=== PATIENT | male | born 1995 | race Two or more races ===

== ENCOUNTER 2020-10-31 07:01 | Outpatient (REF) | payer OTHER, SELFPAY | END 2020-10-31 07:02 | disposition home or self-care (01) | LOC: HO.LAB 07:01 | PROVIDERS: Visit Provider Internal Medicine | DX: Z20.828 Contact with and (suspected) exposure to other viral communicable diseases (principal) | CPT/HCPCS: C9803; U0003 ==

== ENCOUNTER 2021-04-08 12:42 | Emergency (ER) | payer OTHER, SELFPAY ==
[2021-04-08 13:00] VITALS: BP 157/80; PULSE 76; RESP 16; TEMP 35.9; O2SAT 99; BMI 29.9
--- NOTE | 2021-04-08 14:19 | ED.GENADULT ---
HPI - General Adult General Chief complaint: General Medical Stated complaint: STOMACH PROBLEM Time Seen by Provider: 04/08/21 14:00 Source: patient Mode of arrival: ambulatory Limitations: no limitations History of Present Illness HPI narrative: Patient presents to ED for work note. Patient yesterday had headache and diarrhea that resolved on its own. Patient presently is asymptomatic. Patient denies any chest pain, abdominal pain, nausea, vomiting, fever, chills, diarrhea, flank pain, hematuria, dysuria, or neck stiffness. Patient presently states he is asymptomatic Related Data Allergies Allergy/AdvReac Type Severity Reaction Status Date / Time No Known Allergies Allergy Unverified 07/26/20 19:51 [No Known Allergies*] Review of Systems Constitutional: Constitutional: Reports as per HPI, Reports no additional constitutional complaints and Reports headache(s) (resolved) Eyes: Eyes: Reports as per HPI and Reports no additional eye complaints ENT: Reports system reviewed and no additional complaints, except as documented, Reports as per HPI and Reports headache(s) (resolved) Cardiovascular: Cardiovascular: Reports as per HPI and Reports no additional cardiovascular complaints Respiratory: Respiratory: Reports as per HPI and Reports no additional respiratory complaints Gastrointestinal: Gastrointestinal: Reports as per HPI, Reports no additional gastrointestinal complaints, Denies abdominal pain, Denies belching, Denies melena, Denies early satiety, Denies dyspepsia, Denies heartburn, Denies nausea, Reports vomiting (resolved) and Denies hematemesis Genitourinary: Genitourinary: Reports no additional male genitourinary complaints and Reports as per HPI Musculoskeletal: Musculoskeletal: Reports no additional musculoskeletal complaints and Reports as per HPI Neurologic: Reports system reviewed and no additional complaints, except as documented, Reports as per HPI and Reports headache(s) (resolved) Psychiatric: Psychiatric: Reports no additional psychiatric complaints and Reports as per HPI [facility] Social History Social History Advance Directives: No Advance Directives Information Provided: No Physical Exam Vital Signs: Vital Signs: Last Vital Signs Temp 96.7 F L 04/08/21 13:00 Pulse 76 04/08/21 13:00 Resp 16 04/08/21 13:00 BP 157/80 H 04/08/21 13:00 Pulse Ox 99 04/08/21 13:00 Body Mass Index 29.9 Const: General: cooperative, healthy appearing, comfortable, no acute distress, well developed, alert and awake Orientation/consciousness: patient oriented x3 HENMT: Head: Yes normal to inspection, Yes No palpable skull fracture present, Yes normocephalic and Yes atraumatic Eyes: General: appearance normal, both eyes and all related structures Neck: Neck: Yes normal visual inspection, Yes full ROM, Yes no lymphadenopathy, Yes no meningeal signs, Yes trachea midline, Yes supple and No tender Chest: Chest palpation & inspection: normal inspection of the chest and normal palpation of entire chest wall Resp: Effort & Inspection: normal respiratory effort and able to speak in complete sentences Auscultation: clear to auscultation bilaterally Cardio: Jugular venous distension: no JVD Heart sounds: S1 normal heart sound present and S2 normal heart sound present GI: Inspection: Yes normal to inspection and No abdominal wall ecchymosis Palpation (GI): Soft to palpation, not firm, nontender, no guarding and not rigid : General: No CVA tenderness and Yes no CVA tenderness Back/Spine/Pelvis: Back: no CVA tenderness, No CVA tenderness and No back tenderness Skin: General skin exam: no rashes or lesions noted and elasticity normal Neuro: General: patient oriented x3, no meningeal signs and CN's II-XI intact bilaterally Cranial nerves: Yes CN's II-XII intact bilaterally Extrem: General: Yes normal to inspection and Yes full ROM Psych: Appearance: grossly normal, well kempt and not disheveled Course Course Course Narrative: History physical exam indicate viral gastroenteritis. Patient vital signs stable no need for labs. Only COVID swab. Reevaluation(s) Reevaluation #1: COVID swab negative. Patient educated on brat diet. Patient discharged Medical Decision Making Lab Data Labs: Lab Results 04/08/21 Range/Units 14:20 COVID-19 (ROB) Negative (Negative) COVID-19 Clin Com See Note Discharge Plan Discharge Clinical Impression: Gastroenteritis Patient Disposition: Home, Self-Care Instructions: Gastroenteritis (ED), Viral Syndrome (ED) Stand Alone Forms: Work/School Release Interventions: ED Discharge Assessment Last Done: 04/08/21 15:21 Discharge Date/Time: 04/08/21 15:22
[2021-04-08 14:42] LABS: COVID-19 Test Negative (Negative)
== END 2021-04-08 15:22 | disposition home or self-care (01) ==
PROVIDERS: Physician Assistant; Emergency Provider Emergency Medicine Emergency Medical Services
DX: Z02.79 Encounter for issue of other medical certificate (principal); K52.9 Noninfective gastroenteritis and colitis, unspecified; B34.9 Viral infection, unspecified; Z20.822 Contact with and (suspected) exposure to COVID-19
CPT/HCPCS: 36415; 87635; 99283

== ENCOUNTER 2022-01-06 13:51 | Emergency (ER) | payer OTHER, SELFPAY ==
[2022-01-06 14:38] VITALS: BP 162/96; PULSE 89; RESP 18; TEMP 37.1; O2SAT 99; BMI 29.9
== END 2022-01-06 17:10 | disposition left against medical advice (07) ==
PROVIDERS: Emergency Provider Emergency Medicine
DX: Z48.02 Encounter for removal of sutures (principal)
CPT/HCPCS: 99281; 99282

== ENCOUNTER 2022-04-12 06:18 | Emergency (ER) | payer OTHER, SELFPAY ==
--- NOTE | ~2022-04-12 | US_ITS ---
EXAMINATION: US VENOUS ULTRASOUND WITH DOPPLER LOWER EXTREMITY, RIGHT CLINICAL INFORMATION: Elevated d-dimer COMPARISON: None TECHNIQUE: Ultrasound of the deep veins is performed from the hip to the calf with compression sonography and color and pulse Doppler assessment. Spectral analysis with color-flow imaging is performed. FINDINGS: There is normal venous compression and respiratory variation and augmented flow. The visualized common femoral vein, superficial femoral vein, profunda femoral vein, popliteal vein, and the trifurcation region shows no evidence of deep venous thrombosis. No popliteal artery aneurysm is seen. There is a popliteal fossa cyst which extends down into the mid calf. This measures approximately 11.4 x 1.3 x 8.4 cm in size. US/US venous duplex LE RT IMPRESSION: No acute DVT demonstrated in the right lower extremity. Popliteal fossa cyst extending down into the mid calf.
[2022-04-12 06:24] VITALS: BP 152/84; PULSE 80; RESP 16; TEMP 36.1; O2SAT 96; BMI 29.8
--- NOTE | 2022-04-12 07:00 | ED_ITS ---
HPI - Extremity Injury (Lower) General Chief Complaint: Extremity Injury, Lower Stated Complaint: leg inj Time Seen by Provider: 04/12/22 07:00 Source: patient and floor worker well service Mode of arrival: ambulatory History of Present Illness HPI Narrative: 26-year-old male with presentation of progressive swelling, pain or 3 weeks in the right calf and otherwise denies any underlying hematologic disorders, recent travel, traumatic injury but does state that he may have injured it during basketball. Otherwise, he denies any fever, chills is able to both plantar and dorsiflex his foot Related Data Allergies Allergy/AdvReac Type Severity Reaction Status Date / Time No Known Allergies Allergy Verified 04/12/22 06:26 [No Known Allergies*] Review of Systems Review of Systems: Pertinent positives and negatives as stated in HPI 10 point review of systems is otherwise negative. [facility] Past Medical History Source: nursing notes reviewed Social History Social History Advance Directives: No Advance Directives Information Provided: Yes Physical Exam Vital Signs: Vital Signs: Last Vital Signs Temp 97 F 04/12/22 06:24 Pulse 80 04/12/22 06:24 Resp 16 04/12/22 06:24 BP 152/84 H 04/12/22 06:24 Pulse Ox 96 04/12/22 06:24 BMI result Body Mass Index 29.8 VITAL SIGNS: Reviewed. GENERAL: Well developed, well nourished, in no acute distress. HEAD: Normocephalic/atraumatic EYES: PERRLA, EOMI EARS: Ext canals without abnormality OROPHARYNX: no oral lesions noted, posterior pharynx clear LUNGS: Normal breath sounds. No adventitious sounds or accessory muscle use. SpO2<>96 CARDIOVASCULAR: Regular rate and rhythm without noted murmurs ABDOMEN: Soft, non-tender, non-distended with bowel sounds. MUSCULOSKELETAL: No tenderness, deformities, or effusions noted on gross inspection. EXTREMITIES: No cyanosis, clubbing or edema; RIGHT LOWER EXTREMITY: Swelling and tightness noted to the right calf, palpable pulses, sensation is intact, capillary refill less than 3 seconds, plantar/dorsiflexion of the foot is without difficulty there is no footdrop SKIN: Inspection of the skin reveals no rashes NEUROLOGIC: Alert and oriented x 4. Strength and sensation to light touch were grossly intact x 4. Course Course Course Narrative: 26-year-old male with history and clinical presentation concerning for possible DVT without evidence to suggest PE, seems inconsistent with a cellulitis and patient has no history of sickle cell to his knowledge and since this is a traumatic lower clinical suspicion for torn muscle. Review of all investigations although initially showed an elevated D-dimer is consistent after venous duplex which is negative for DVT of a ruptured Lopez cyst. Patient was provided with combination analgesics, an Charlie wrap was applied, all results were discussed with the patient he was discharged home in stable condition. MDM - Extremity Injury (Lower) Lab Data Result diagrams: 04/12/22 07:04/12/22 07:22 Labs: Lab Results 04/12/22 04/12/22 04/12/22 Range/Units 07: 07: 07:22 WBC 4.8 (4.8-10.8) X10*3/uL RBC 5.24 (4.60-5.80) X10*6/uL Hgb 14.7 (14.0-18.0) g/dl Hct 45.2 (42.0-52.0) % MCV 86.3 (80.0-98.0) fL MCH 28.1 (27.0-33.0) pg MCHC 32.5 (31.0-36.0) g/dl RDW 13.3 (11.0-16.0) % Plt Count 189 (160-400) X10*3/uL MPV 12.6 H (9.4-12.4) fL Immature Gran % (Auto) 0.2 (0.0-0.4) % Neut % (Auto) 39.8 L (45-73) % Lymph % (Auto) 47.4 H (20-40) % [place] % (Auto) 9.9 (2-11) % Eos % (Auto) 2.1 (0-4) % Baso % (Auto) 0.6 (0-2) % Lymph # (Auto) 2.3 (1.2-4.9) X10*3/uL [place] # (Auto) 0.5 (0.1-1.2) X10*3/uL Eos # (Auto) 0.1 (0.0-0.4) X10*3/uL Baso # (Auto) 0.0 (0.0-0.2) X10*3/uL Abs Immat Gran (auto) 0.01 (0.00-0.03) X10*3/uL Absolute Neuts (auto) 1.9 L (2.0-8.3) x10*3/uL Absolute Nucleated RBC 0.000 (0.0-0.012) X10*3/uL Nucleated RBC % (auto) 0.0 (0.0-0.2) /100WBC PT 12.2 (9.9-13.0) SEC INR 1.1 (0.9-1.1) D-Dimer High Sensitivty 573 NG/ML Sodium 140 (135-145) mmol/L Potassium 4.0 (3.3-5.1) mmol/L Chloride 107 (96-108) mmol/L Carbon Dioxide 25 (22-29) mmol/L Anion Gap 12 (12-20) BUN 16 (9-16) mg/dL Creatinine 1.11 (0.5-1.4) mg/dL Estim Creat Clear Calc 119.8 Estimated GFR > 60 Random Glucose 100 (60-115) mg/dL Calcium 9.8 (8.4-10.2) mg/dL Total Bilirubin 0.5 (0.0-1.0) mg/dL AST 20 (5-37) U/L ALT 35 (0-40) U/L Alkaline Phosphatase 86 (39-117) U/L Total Creatine Kinase 209 H (38-174) U/L Total Protein 7.7 (6.5-8.0) g/dL Albumin 4.2 (3.5-5.0) g/dL Discharge Plan Discharge Clinical Impression: Ruptured Bakers cyst Patient Disposition: Home, Self-Care Instructions: Bakers Cyst (ED) Additional Instructions: 1. Le green diagnosticado un quiste popl?natan probablemente roto. [place] se trata con Tylenol e ibuprofeno de venta cookie, as? victoria con la aplicaci?n de loli envoltura Charlie. 2. Seguimiento con stahl proveedor de atenci?n primaria para loli evaluaci?n adicional. Regrese a la shraddha de emergencias si los s?ntomas empeoran. Print Language: Congolese
[2022-04-12 07:27] LABS: MANUAL DIFF FLAG NO
[2022-04-12 07:31] LABS: Basophils Percent Auto 0.6 % (0-2); Eosinophils Absolute Auto 0.1 X10*3/uL (0.0-0.4); Eosinophils Percent Auto 2.1 % (0-4); Hematocrit 45.2 % (42.0-52.0); Hemoglobin 14.7 g/dl (14.0-18.0); Imm Gran Abs Auto 0.01 X10*3/uL (0.00-0.03); Imm Gran Pct Auto 0.2 % (0.0-0.4); Lymphocytes Absolute Auto 2.3 X10*3/uL (1.2-4.9); Lymphocytes Percent Auto 47.4 % (20-40); Mean Corpuscular HGB Conc 32.5 g/dl (31.0-36.0); Mean Corpuscular Hemoglobin 28.1 pg (27.0-33.0); Mean Corpuscular Volume 86.3 fL (80.0-98.0); Mean Platelet Volume 12.6 fL (9.4-12.4); Monocytes Absolute Auto 0.5 X10*3/uL (0.1-1.2); Monocytes Percent Auto 9.9 % (2-11); Neutrophils Absolute Auto 1.9 x10*3/uL (2.0-8.3); Neutrophils Percent Auto 39.8 % (45-73); Platelet Count 189 X10*3/uL (160-400); Red Blood Count 5.24 X10*6/uL (4.60-5.80); Red Cell Distribution Width 13.3 % (11.0-16.0); White Blood Count 4.8 X10*3/uL (4.8-10.8)
[2022-04-12 07:38] LABS: INTERNATIONAL NORM RATIO 1.1 (0.9-1.1); Prothrombin Time 12.2 SEC (9.9-13.0)
[2022-04-12 07:45] LABS: D Dimer High Sensitivity 573 NG/ML
[2022-04-12 07:49] LABS: Alanine Aminotransferase 35 U/L (0-40); Albumin Level 4.2 g/dL (3.5-5.0); Alkaline Phosphatase 86 U/L (39-117); Anion Gap 12 (12-20); Aspartate Amino Transferase 20 U/L (5-37); Bilirubin Total 0.5 mg/dL (0.0-1.0); Blood Urea Nitrogen 16 mg/dL (9-16); Calcium 9.8 mg/dL (8.4-10.2); Carbon Dioxide 25 mmol/L (22-29); Chloride 107 mmol/L (96-108); Creatinine Clr Calc Pharmacy 119.8; Estimated Glomerular Filt Rate > 60; Glucose Random 100 mg/dL (60-115); Sodium 140 mmol/L (135-145); Total Protein 7.7 g/dL (6.5-8.0)
[2022-04-12] MEDS: Acetaminophen 325 MG TABLET 975 MG PO (10:38)
[2022-04-12] MEDS: Ketorolac Tromethamine 15 MG/ML VIAL IM (10:38)
[2022-04-12 10:41] VITALS: BP 157/108; PULSE 58; RESP 18; O2SAT 100
== END 2022-04-12 10:55 | disposition home or self-care (01) ==
PROVIDERS: Emergency Provider Student in an Organized Health Care Education/Training Program
DX: M66.0 Rupture of popliteal cyst (principal); R60.0 Localized edema; Z79.899 Other long term (current) drug therapy
CPT/HCPCS: 36415; 80053; 82550; 85025; 85379; 85610; 93971; 96372; 99283; 99284; J1885

== ENCOUNTER 2023-04-13 08:37 | Emergency (ER) | payer MEDICAID, SELFPAY ==
--- NOTE | ~2023-04-13 | XR_ITS ---
EXAMINATION: XR ANKLE, LEFT CLINICAL INFORMATION: Left ankle injury COMPARISON: None available. TECHNIQUE: AP, lateral, and mortise views of the left ankle. FINDINGS: Prominent lateral soft tissue swelling. No fracture. The ankle mortise is preserved. XR/XR ankle LT 2V IMPRESSION: Lateral soft tissue swelling. No fracture.
[2023-04-13 08:45] VITALS: BP 155/101; PULSE 97; RESP 18; TEMP 36.2; O2SAT 97; BMI 33.2
--- NOTE | 2023-04-13 10:02 | ED.LOWEXIN ---
HPI - Extremity Injury (Lower) General Chief Complaint: Extremity Injury, Lower Stated Complaint: l ankle inj Time Seen by Provider: 04/13/23 09:05 Source: patient and certified court interpreter Mode of arrival: ambulatory Limitations: language barrier History of Present Illness HPI Narrative: 27-year-old male previously healthy here with left ankle pain after an inversion injury occurred which occurred last evening while playing basketball. Patient denies any previous injury to the ankle. Patient reports pain is worsened with weight-bearing. Patient denies any pain over the foot or posterior ankle. He denies any associated weakness, numbness or tingling of extremity. Related Data Allergies Allergy/AdvReac Type Severity Reaction Status Date / Time No Known Allergies Allergy Verified 04/13/23 12:21 [No Known Allergies*] Review of Systems Review of Systems: Yes all other systems are reviewed and are negative Constitutional: Constitutional: Reports no additional constitutional complaints, Denies body ache(s), Denies chills, Denies fever(s), Denies headache(s) and Denies weakness Eyes: Eyes: Reports no additional eye complaints and Denies change in vision ENT: Reports system reviewed and no additional complaints, except as documented, Denies dizziness, Denies headache(s), Denies nasal congestion, Denies nasal discharge and Denies neck pain Cardiovascular: Cardiovascular: Reports no additional cardiovascular complaints, Denies chest pain, Denies leg edema and Denies dyspnea Respiratory: Respiratory: Reports no additional respiratory complaints, Denies cough and Denies dyspnea Gastrointestinal: Gastrointestinal: Reports no additional gastrointestinal complaints, Denies abdominal pain, Denies diarrhea, Denies nausea and Denies vomiting Genitourinary: Genitourinary: Denies urinary incontinence Musculoskeletal: Musculoskeletal: Reports no additional musculoskeletal complaints, Denies back pain, Reports arthralgias, Reports joint swelling, Denies neck pain, Denies numbness and Denies tingling Integumentary/Breasts: Skin/Breast: Reports system reviewed and no additional complaints, except as docu and Denies rash Neurologic: Reports system reviewed and no additional complaints, except as documented, Denies Abnormal speech present, Denies dizziness, Denies headache(s), Denies numbness, Denies tingling and Denies weakness [facility] Past Medical History Attestation statement: The following information was validated with the patient. Source: old records reviewed and nursing notes reviewed Social History Social History (System 04/13/23 @ 12:21 by Geeta Bellamy) Alcohol intake: never Smoked in Last 30 Days: No Use of substances other than those prescribed or required for medical reasons: No Advance Directives: No Advance Directives Information Provided: Yes Physical Exam Vital Signs: Vital Signs: Last Vital Signs Temp 97.1 F 04/13/23 08:45 Pulse 97 04/13/23 08:45 Resp 18 04/13/23 08:45 BP 155/101 H 04/13/23 08:45 Pulse Ox 97 04/13/23 08:45 O2 Del Method Room Air 04/13/23 08:45 BMI result Body Mass Index 33.2 Const: General: cooperative, healthy appearing, comfortable and no acute distress Orientation/consciousness: patient oriented x3 Limitations: no limitations HEENT: Head: Yes normal to inspection Ears: hearing grossly normal bilaterally General nose exam: Normal external nose present Face and sinus: Yes normal facial exam Mouth: Normal oral and palatal mucosa present Throat: Yes posterior oropharynx normal Eyes: General: appearance normal, both eyes and all related structures Pupils: Equal, round and reactive pupils present Neck: Neck: Yes normal visual inspection Chest: Chest palpation & inspection: normal inspection of the chest Resp: Effort & Inspection: normal respiratory effort Auscultation: clear to auscultation bilaterally Cardio: Rate: regular rate Rhythm: regular rhythm Peripheral pulses: Peripheral pulses 2+ throughout GI: Inspection: Yes normal to inspection Palpation (GI): Soft to palpation and nontender Auscultation: normal bowel sounds Back/Spine/Pelvis: Thoracic/Lumbar Spine: thoracic and lumbar spine normal to inspection Skin: General skin exam: no rashes or lesions noted Neuro: General: patient oriented x3, no focal motor deficits and normal sensation to monofilament Cranial nerves: Yes Equal, round and reactive pupils present Cognition (Neuro): normal cognition Speech: No Abnormal speech present Gait exam (Neuro): Normal gait present Motor exam (neuro): 5/5 motor strength present throughout Extrem: Other: There is tenderness on palpation over the left lateral ankle with mild swelling. There is no pain over the foot on palpation. No pain over the medial or posterior ankle. There is full range of motion of the foot and ankle. There is no ligamental laxity. There are normal DP and PT pulses. Sensation is intact distally. Negative Xiong test. General: Yes normal to inspection Course Course Course Narrative: x-ray shows no acute fracture. Likely sprain. Patient placed in Charlie wrap and given crutches for home. Reviewed rice home. Reviewed supportive care. Reviewed worrisome signs and symptoms of when to return to the emergency room. Comfortable plan for discharge home. Medical Decision Making Medical Decision Making MDM Narrative: 27-year-old male here with left ankle pain after an inversion injury which occurred yesterday. On exam patient was swelling and tenderness over the lateral ankle CMS is intact will check x-rays Differential Diagnosis Differential Diagnoses: The differential diagnosis associated with the presentation includes likely sprain low concern for fracture, Achilles tendon rupture, Bai fracture, vascular injury Independent Interpretation I performed an independent interpretation of an: Plain X-Ray Interpretation: I independently reviewed the x-ray and agree with radiologist for Radiology Impression Discussion of test interpretation with radiology: I have reviewed the radiologist's reading. Radiologist Impression: [place] [id number] XRay Report Signed Patient: Nirav Garrison MR#: [id number] : 1995 Acct:[id number] Age/Sex: 27 / M ADM Date: 04/13/23 Loc: .ED Attending Dr: Ordering Physician: Moses Klein MD Date of Service: 04/13/23 Procedure(s): XR ankle LT 2V Accession Number(s): [id number] cc: Moses Klein MD~ EXAMINATION: XR ANKLE, LEFT CLINICAL INFORMATION: Left ankle injury? COMPARISON: None available.? TECHNIQUE: AP, lateral, and mortise views of the left ankle. FINDINGS: Prominent lateral soft tissue swelling. No fracture. The ankle mortise is preserved.? XR/XR ankle LT 2V IMPRESSION: Lateral soft tissue swelling. No fracture. ? Procedures Procedure Narrative Procedure Narrative: Charlie wrap, crutches Discharge Plan Discharge Clinical Impression: Ankle sprain and strain Patient Disposition: Home, Self-Care Instructions: Ankle Sprain (DC), Crutch Instructions (ED) Additional Instructions: Use Charlie wrap and crutches for the next several days until able to bear weight without experiencing pain. Take Motrin or Tylenol for pain as needed. Apply ice to the ankle for pain. Elevate the ankle. Gentle stretching. Follow up with your primary care doctor for any persistent symptoms. Use vendaje Charlie y muletas michael los pr?ximos d?as hasta que pueda soportar peso sin sentir dolor. [place] Motrin o Tylenol para el dolor seg?n sea necesario. Aplicar hielo en el tobillo para el dolor. [place] el tobillo. Estiramiento suave. [place] un seguimiento con stahl m?dico de atenci?n primaria por cualquier s?ntoma persistente. Referrals: Physician,None [Primary Care Provider] - 1 week (PCP for persistent symptoms ) Stand Alone Forms: Work/School Release Interventions: ED Discharge Assessment Last Done: 04/13/23 10:16 Discharge Date/Time: 04/13/23 10:16 Print Language: Arabic
== END 2023-04-13 10:16 | disposition home or self-care (01) ==
PROVIDERS: Emergency Provider Emergency Medicine
DX: S93.402A Sprain of unspecified ligament of left ankle, initial encounter (principal); S96.912A Strain of unspecified muscle and tendon at ankle and foot level, left foot, initial encounter; X50.1XXA Overexertion from prolonged static or awkward postures, initial encounter; Y93.67 Activity, basketball; Y92.310 Basketball court as the place of occurrence of the external cause; Y99.9 Unspecified external cause status
CPT/HCPCS: 73600; 99283

== ENCOUNTER 2023-08-04 09:37 | Emergency (ER) | payer OTHER, MEDICAID, SELFPAY ==
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
[2023-08-04 09:38] VITALS: BP 152/80; PULSE 88; RESP 20; TEMP 36.7; O2SAT 100; BMI 31.7
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
== END 2023-08-04 13:33 | disposition home or self-care (01) ==
PROVIDERS: Emergency Provider Emergency Medicine
DX: S29.012A Strain of muscle and tendon of back wall of thorax, initial encounter (principal); M54.50 Low back pain, unspecified; X58.XXXA Exposure to other specified factors, initial encounter; Y93.9 Activity, unspecified; Y92.9 Unspecified place or not applicable; Y99.9 Unspecified external cause status
CPT/HCPCS: 72072; 99282; 99283

== ENCOUNTER 2024-04-19 07:37 | Emergency (ER) | payer MEDICAID, SELFPAY ==
[2024-04-19 07:46] VITALS: BP 166/96; PULSE 110; RESP 18; TEMP 37.8; O2SAT 97; BMI 33.5
[2024-04-19 08:12] LABS: IDNOW Serial# 08D9AD1C; Strep A Nucleic Acid Negative (Negative)
[2024-04-19 08:32] LABS: COVID-19 Test Negative (Negative); IDNOW Serial# 152EDE1D
[2024-04-19 08:34] LABS: IDNOW Serial# 9DB6401D; Influenza A Negative (Negative); Influenza B2 Negative (Negative)
--- NOTE | 2024-04-19 13:15 | ED_ITS ---
HPI - General Adult General Chief complaint: Upper Respiratory Symptoms Stated complaint: body aches, cant keep food down Time Seen by Provider: 04/19/24 12:38 Source: patient Mode of arrival: ambulatory Limitations: no limitations History of Present Illness ED Provider: Pato Rosen PA-C HPI narrative: 28-year-old male with no past medical history presents to ED for body aches, chills, headache, neck pain and nausea. Patient denies any chest pain, shortness of breath, abdominal pain, coughing up blood, photophobia, fever, dizziness, diarrhea, rash, or any urinary symptoms. Related Data Previous Rx's ?Medication ?Instructions ?Recorded cyclobenzaprine 5 mg tablet 5 mg PO TID PRN muscle spasm #10 08/04/23 tabs lidocaine 5 % topical patch 1 patch topical DAILY #15 ea 08/04/23 naproxen 500 mg tablet 500 mg PO BID PRN pain 7 days #14 04/19/24 tabs Allergies Allergy/AdvReac Type Severity Reaction Status Date / Time No Known Allergies Allergy Verified 04/19/24 07:48 [No Known Allergies*] Review of Systems Review of Systems: bodyaches,headache,neck pain, nausea, chills, Yes all other systems are reviewed and are negative [facility] Social History Social History (System 04/13/23 @ 12:21 by Geeta Bellamy) Alcohol intake: never Advance Directives: No Physical Exam ED Vital Signs: Vital Signs - 24 hr 04/19/24 07:46 04/19/24 14:13 Temperature 100.0 F 100.0 F Pulse Rate 110 H 110 H Respiratory Rate 18 18 Blood Pressure 166/96 H 166/96 H Pulse Oximetry 97 97 Oxygen Delivery Method Room Air Room Air BMI result Body Mass Index 33.5 Const General: cooperative, healthy appearing, comfortable, no acute distress, well developed, alert, awake and Physically active Orientation/consciousness: oriented to person, oriented to place, oriented to time and patient oriented x3 HENMT Head: Yes normal to inspection, Yes No palpable skull fracture present, Yes normocephalic and Yes atraumatic Ears: hearing grossly normal bilaterally, external ears normal, TM's normal bilaterally, TM normal on the right, TM normal on the left, EAC's normal, mastoids normal and no periauricular adenopathy Throat: Yes posterior oropharynx normal, Yes tonsils normal and Yes uvula midline Eyes General: appearance normal, both eyes and all related structures Neck Neck: Yes normal visual inspection, Yes full ROM, Yes no lymphadenopathy, Yes no meningeal signs, Yes trachea midline, Yes supple, No anterior neck swelling and No tender Chest Chest palpation & inspection: normal inspection of the chest and normal palpation of entire chest wall Resp Effort & Inspection: normal respiratory effort and able to speak in complete sentences Auscultation: clear to auscultation bilaterally Cardio Jugular venous distension: no JVD Heart sounds: S1 normal heart sound present and S2 normal heart sound present GI Inspection: Yes normal to inspection Palpation (GI): Soft to palpation, not firm, nontender, no guarding and not rigid General: No CVA tenderness and Yes no CVA tenderness Back/Spine/Pelvis Back: no CVA tenderness, No CVA tenderness and No back tenderness Skin General skin exam: no rashes or lesions noted, elasticity normal and turgor normal Neuro General: oriented to person, oriented to place, oriented to time, patient oriented x3, gait normal, tone normal, moves all extremities, Normal light touch and pain sensation, no meningeal signs, no focal motor deficits, CN's II-XI intact bilaterally and normal sensation to monofilament Extrem General: Yes normal to inspection, Yes full ROM and Yes capillary refill normal Psych Appearance: grossly normal, well kempt and not disheveled Medical Decision Making Medical Decision Making [facility] Narrative: 28-year-old male no past medical history presents to ED for viral-like syndromes. Patient's influenza COVID and strep is negative. Physical exam does not indicate meningitis, pneumonia, or any surgical medical emergent etiology of the abdomen. Ear oral exam negative. Patient explained worrisome signs and informed to return to the ED immediately if he has them. Not suspecting encephalitis Differential Diagnosis Differential Diagnoses: The differential diagnosis associated with the presentation includes ( COVID, influenza, strep viral syndrome) Admission/Observation Consideration of admission/observation: Escalation of care including admission/observation considered Lab Data [facility] Lab Attestation statement: I reviewed the patient's lab results. Labs: Lab Results 04/19/24 Range/Units 07:55 COVID-19 (ROB) Negative (Negative) COVID-19 Clin Com See Note Influenza Type A (RAIZA) Negative (Negative) Influenza Type B (RAIZA) Negative (Negative) Influenza A & B Note See Note S. pyogenes GrpA RAIZA Negative (Negative) Independent Historian Clinical information obtained from an independent historian. History obtained from or confirmed by: Other ( patient) External Record Review External record reviewed: Other ( prior visits) Prescription Management I considered prescription management with: Pain Medication Discharge Plan Discharge Clinical Impression: Viral infection Patient Disposition: Home, Self-Care Instructions: Viral Syndrome (ED) Additional Instructions: your COVID influenza and strep swab came back negative. Return to the ED immediately for any neck stiffness, light bothering your eyes, rash, nausea, vomiting, chest pain, shortness of breath, abdominal pain, ear pain, sore throat, diarrhea, dysuria, hematuria, abdominal pain, or any other concerning symptoms. Prescriptions: New naproxen 500 mg tablet 500 mg PO BID PRN (Reason: pain) 7 Days Qty: 14 0RF No Action cyclobenzaprine 5 mg tablet 5 mg PO TID PRN (Reason: muscle spasm) Qty: 10 0RF lidocaine 5 % adhesive patch,medicated 1 patch topical DAILY Qty: 15 0RF Rx Instructions: leave on most painful area for up to 12 hrs Stand Alone Forms: Work/School Release Interventions: ED Discharge Assessment Last Done: 04/19/24 14:13 Discharge Date/Time: 04/19/24 14:13 Print Language: Azeri
[2024-04-19 14:13] VITALS: BP 166/96; PULSE 110; RESP 18; TEMP 37.8; O2SAT 97
== END 2024-04-19 14:13 | disposition home or self-care (01) ==
PROVIDERS: Emergency Provider Emergency Medicine
DX: B34.9 Viral infection, unspecified (principal); M79.10 Myalgia, unspecified site; R51.9 Headache, unspecified; M54.2 Cervicalgia; R11.2 Nausea with vomiting, unspecified; Z11.52 Encounter for screening for COVID-19
CPT/HCPCS: 87502; 87635; 87651; 99282; 99283

== ENCOUNTER 2025-01-19 10:33 | Emergency (ER) | payer MEDICAID, SELFPAY ==
--- NOTE | ~2025-01-19 | XR_ITS ---
EXAMINATION: XR LUMBOSACRAL SPINE CLINICAL INFORMATION: back pain COMPARISON: None available. TECHNIQUE: Three views of the lumbosacral spine. FINDINGS: The vertebral bodies and posterior elements are normal. The disc spaces are preserved and the vertebral alignment is normal. The paraspinal soft tissues are normal. XR/XR lumbar spine 2-3V IMPRESSION: Normal lumbar radiographs. Electronically signed by: Karel Shaffer MD 01/19/2025 01:56 PM EDT
--- NOTE | ~2025-01-19 | XR_ITS ---
EXAMINATION: XR THORACIC SPINE CLINICAL INFORMATION: back pain COMPARISON: 08/04/2023. TECHNIQUE: 3 views of the thoracic spine were obtained. FINDINGS: There is no fracture or bone destruction seen and the vertebral alignment is normal. There is no disc space narrowing. There is no abnormality of the paraspinal soft tissues. XR/XR thoracic spine 3V IMPRESSION: Normal thoracic spine radiographs. Electronically signed by: Karel Shaffer MD 01/19/2025 01:57 PM EDT
[2025-01-19 10:42] VITALS: BP 174/121; PULSE 89; RESP 18; TEMP 36; O2SAT 98; BMI 33.3
[2025-01-19] MEDS: predniSONE 20 MG TABLET 40 MG PO (12:47)
[2025-01-19] MEDS: Ketorolac Tromethamine 30 MG/ML VIAL IM (12:47)
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
[2025-01-19 13:02] VITALS: BP 147/106; PULSE 72; RESP 14; TEMP 36.8; O2SAT 99
[2025-01-19 15:21] VITALS: BP 169/96; PULSE 78; RESP 20; TEMP 37.1; O2SAT 98
[2025-01-19 15:30] VITALS: BP 169/96; PULSE 78; RESP 20; TEMP 37.1; O2SAT 98
== END 2025-01-19 15:30 | disposition home or self-care (01) ==
PROVIDERS: Emergency Provider Emergency Medicine
DX: M54.9 Dorsalgia, unspecified (principal)
CPT/HCPCS: 72072; 72100; 96372; 99284; J1885

== ENCOUNTER → 2025-01-19 12:54 | Outpatient (BNV) | payer MEDICAID, SELFPAY | PROVIDERS: Emergency Provider Emergency Medicine; Visit Provider Radiology Diagnostic Radiology | DX: M54.50 Low back pain, unspecified (principal); M54.6 Pain in thoracic spine | CPT/HCPCS: 72072; 72100 ==

== ENCOUNTER 2025-06-28 14:32 | Emergency (ER) | payer MEDICAID, SELFPAY ==
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
--- NOTE | 2025-06-28 14:45 | ECG_ITS ---
Test Reason : HIGH SUGAR Blood Pressure : */* mmHG Vent. Rate : 95 BPM Atrial Rate : 95 BPM P-R Int : 154 ms QRS Dur : 74 ms QT Int : 352 ms P-R-T Axes : 38 22 -11 degrees QTcB Int : 442 ms Normal sinus rhythm Normal ECG No previous ECGs available Referred By: Marianna Christine Electronically Signed By: NARENDRA ELIZALDE MD
[2025-06-28 14:50] LABS: Glucose, Whole Blood 420 mg/dL (60-115)
[2025-06-28] MEDS: Lactated Ringers 1,000 ML 2000 ML IV (14:57)
[2025-06-28 14:59] VITALS: BP 145/85; PULSE 105; RESP 17; TEMP 36.8; O2SAT 100; O2SAT 96; BMI 36.8
--- OUTSIDE RECORDS SUMMARY | 2025-06-28 15:00 | XMS_ITS | Encounter Summary ---
Author Organization [employer] Address [address] [place] [address] Care Team Providers Care Housekeeper Child Care Name Role Phone Unavailable Primary Care Provider Unavailabl e Reason for Visit * Reason Comments Dizziness Encounter Details Date Type Department Care Team ([facility] st Contact Info) Description 06/28/2025 3:00 PM EDT Office Visit [facility] [address] [place] [address] Marychuy Wynne MD [address] [place] [address] Newly diagnosed diabetes (CMS/HCC) (Primary Dx); Dizzy; Excessive thirst; Elevated blood pressure reading Social History Tobacco Use Types Packs/Day Years Used Date Smoking Tobacco: Never Assessed Sex and Gender Information Value Date Recorded Sex Assigned at Male 09/08/2022 10:40 AM EDT Legal Sex Male 10:40 AM EDT Gender Identity Male 09/08/2022 10:40 AM EDT Sexual Orientation Straight 09/08/2022 10 :40 AM EDT documented as of this encounter Last Filed Vital Signs Vital Sign Reading Time Taken Comments Blood Pressure 158/100 06/28/2025 1:44 PM EDT Pulse 99 06/28/2025 1:44 PM EDT Temperature 36.6 C (97.9 F) 06/28/2025 1:44 PM EDT Respiratory Rate 18 06/28/2025 1:44 PM EDT Oxygen Saturation 96% 06/28/2025 1:44 PM EDT Inhaled Oxygen Concentration - - Weight - - Height - - Body Mass Index - - documented in this encounter Progress Notes * Marychuy Paige MD - 06/28/2025 3:00 PM EDT SUBJECTIVE: Nirav Ware is a 29 y.o. year old male who presents for acute visit . Concerns for today's visit: Occupation:unemployed Lives with:partner and daughter - EtOH occasionally weekends only no more than 3 drinks - smoking cigarettes denies - recreational drug use denies Diet:regular Exercise: plays softball on weekends Surgeries/Hospitalizations:none PMHx:none FMHx:father HTN Acute Concerns: 1 week of excessive thirst , polyuria, enuresis and fatigue and dizziness Social History Social History Narrative Not on file Problem List[1] Family History[2] Review of Systems Constitutional: Positive for fatigue. Negative for activity change, appetite change, chills, diaphoresis, fever and unexpected weight change. HENT: Negative. Respiratory: Negative. Cardiovascular: Negative. Gastrointestinal: Negative for abdominal distention, abdominal pain, anal bleeding, blood in stool,constipation, diarrhea, nausea, rectal pain and vomiting. Heartburn Neurological: Positive for dizziness and light-headedness. Negative for tremors, seizures, syncope,facial asymmetry, speech difficulty, weakness, numbness and headaches. OBJECTIVE: Vitals: 06/28/25 1344 BP: (!) 158/100 BP Location: Left arm Patient Position: Sitting BP Cuff Size: Large adult Pulse: 99 Resp: 18 Temp: 97.9 ??F (36.6 ??C) TempSrc: Oral SpO2: 96% Physical Exam Constitutional: Appearance: Normal appearance. Cardiovascular: Rate and Rhythm: Normal rate and regular rhythm. Pulmonary: Effort: Pulmonary effort is normal. Breath sounds: Normal breath sounds. Abdominal: General: Abdomen is flat. Palpations: Abdomen is soft. Musculoskeletal: Right lower leg: No edema. Left lower leg: No edema. Neurological: Mental Status: He is alert. Follow Up: No follow-ups on file. Medications Ordered Prior to Encounter[3] Problem List Items Addressed This Visit Newly diagnosed diabetes ([facility]) - Primary Glucose today [facility], A1c 12.3 urine + ketones Patient presented to [facility] called Elevated blood pressure reading I advised low Na diet, weight reduction, I will follow up after hospitalization Other Visit Diagnoses Dizzy Relevant Orders POCT Glucose (Completed) POCT HGB A1C (Completed) POCT Urinalysis (Completed) Excessive thirst Relevant Orders POCT Glucose (Completed) POCT HGB A1C (Completed) POCT Urinalysis (Completed) [1] Patient Active Problem List Diagnosis Newly diagnosed diabetes (CMS/[facility]) Elevated blood pressure reading [2] No family history on file. [3] No current outpatient medications on file prior to visit. No current facility-administered medications on file prior to visit. documented in this encounter Miscellaneous Notes * Assessment & Plan Note - Marychuy Paige MD - 06/28/2025 2:06 PM EDT Associated Problem(s): Elevated blood pressure reading I advised low Na diet, weight reduction, I will follow up after hospitalization * Assessment & Plan Note - Marychuy Paige MD - 06/28/2025 2:04 PM EDT Associated Problem(s): Newly diagnosed diabetes ([facility]) Glucose today [facility], A1c 12.3 urine + ketones Patient presented to [facility] called documented in this encounter Plan of Treatment Upcoming Encounters Date Type Department Care Team (Late st Contact Info) Description 07/18/2025 10:15 AM EDT Office Visit [facility] [address] [place] [address] Marychuy Wynne MD [address] [place] [address] documented as of this encounter Procedures Procedure Name Priority Date/Time Associated Diagnosis Comments POCT GLYCATED HEMOGLOBIN, TOTAL Routine 06/28/2025 1:41 PM EDT Dizzy Excessive thirst POCT GLUCOSE Routine 06/28/2025 1:41 PM EDT Dizzy Excessive thirst POCT URINALYSIS DIPSTICK Routine 06/28/2025 1:37 PM EDT Dizzy Excessive thirst documented in this encounter Results * (ABNORMAL) POCT HGB A1C (06/28/2025 1:41 PM EDT) Hemoglobin A1C 12.3(A) 4.0 - 5.7 % Blood 06/28/2025 1:41 PM EDT Marychuy Paige MD POINT OF CARE TEST EN TER/EDIT ORDERABLES Final Result * (ABNORMAL) POCT Glucose (06/28/2025 1:41 PM EDT) Glucose Blood, POC 500(A) 60 - 200 mg/dL Comment:[facility] Blood Capillary blood specimen / Unknown 06/28/2025 1:41 PM EDT Marychuy Paige MD POINT OF CARE TEST EN TER/EDIT ORDERABLES Final Result * (ABNORMAL) POCT Urinalysis (06/28/2025 1:37 PM EDT) Color, UA Colorless Clarity, UA Clear Glucose, UA 4+ >500 Comment:over 1000 Bilirubin, UA Negative Ketones, UA Positive Comment:15 Spec Grav, UA 1.005 Blood, UA Positive(A) Negative, None Detected Comment:trace pH, UA 5.5 Protein, UA Negative Urobilinogen, UA 0.2 Leukocytes, UA Negative Negative, Rare, Trace Nitrite, UA Negative Negative, None Detected Urine 06/28/2025 1:37 PM EDT Result Chelita Paige MD POINT OF CARE TEST EN TER/EDIT ORDERABLES Final Result documented in this encounter Visit Diagnoses Diagnosis Newly diagnosed diabetes (CMS/[facility])- Primary Type II or unspecified type diabetes mellitus without mention of complication, not stated as uncontrolled Dizzy Dizziness and giddiness Excessive thirst Polydipsia Elevated blood pressure reading Elevated blood pressure reading without diagnosis of hypertension documented in this encounter
[2025-06-28 15:06] VITALS: BP 145/85; PULSE 105; RESP 17; TEMP 36.8; O2SAT 96
[2025-06-28 15:17] LABS: Venous Blood Gas Refer to POC result
[2025-06-28 15:18] LABS: VBG HCO3 29 mmol/L (22-26); VBG O2 % Saturation 66.0 %
[2025-06-28 15:18] LABS: MANUAL DIFF FLAG SCAN; SCAN SMEAR FLAG 1
[2025-06-28 15:20] LABS: Hematocrit 45.9 % (42.0-52.0); Hemoglobin 15.6 g/dl (14.0-18.0); Imm Gran Abs Auto 0.01 X10*3/uL (0.00-0.03); Imm Gran Pct Auto 0.2 % (0.0-0.4); Lymphocytes Absolute Auto 1.5 X10*3/uL (1.2-4.9); Mean Corpuscular HGB Conc 34.0 g/dl (31.0-36.0); Mean Corpuscular Hemoglobin 28.1 pg (27.0-33.0); Mean Corpuscular Volume 82.6 fL (80.0-98.0); NRBC Abs Auto 0.000 X10*3/uL (0.0-0.012); NRBC Pct Auto 0.0 /100WBC (0.0-0.2); PLT ABN DIST 1; Platelet Count 169 X10*3/uL (160-400); Red Blood Count 5.56 X10*6/uL (4.60-5.80); White Blood Count 5.3 X10*3/uL (4.8-10.8)
[2025-06-28 15:23] LABS: INTERNATIONAL NORM RATIO 1.0 (0.9-1.1); Prothrombin Time 11.1 SEC (10.9-12.4)
[2025-06-28 15:45] LABS: Alanine Aminotransferase 73 U/L (0-40); Albumin Level 4.6 g/dL (3.5-5.0); Alkaline Phosphatase 125 U/L (39-117); Anion Gap 16 (12-20); Aspartate Amino Transferase 39 U/L (5-37); Blood Urea Nitrogen 10 mg/dL (9-16); Calcium 9.4 mg/dL (8.4-10.2); Carbon Dioxide 26 mmol/L (22-29); Chloride 103 mmol/L (96-108); Creatinine Clr Calc Pharmacy 128.0; Estimated Glomerular Filt Rate > 60; Magnesium 2.1 mg/dL (1.6-2.6); Potassium 4.4 mmol/L (3.3-5.1); Sodium 141 mmol/L (135-145); Total Protein 8.0 g/dL (6.5-8.0)
[2025-06-28 15:55] LABS: Resp Syncy Virus RNA Qual PCR NEGATIVE (Negative); SARS COV2 PCR INHOUSE NEGATIVE (Negative)
[2025-06-28 15:56] LABS: Troponin-I High Sensitivity < 2.7 ng/L (<3.5-35.0)
--- OUTSIDE RECORDS SUMMARY | 2025-06-28 16:22 | XMS_ITS | Encounter Summary ---
Author Organization [facility] Address [address] [place] [phone] Phone Care Team Providers Care Sandwich And Drink Cart Operator Name Role Phone Pcp, Unknown Primary Care Provider Unavailabl e Encounter Details Date Type Department Care Team (Late st Contact Info) Description 12/26/2021 Procedure Pass [facility], Ct Scan - [address] [address] Social History Tobacco Use Types Packs/Day Years Used Date Smoking Tobacco: Never Assessed Sex and Gender Information Value Date Recorded Sex Assigned at Male 12/26/2021 5:45 AM EST Legal Sex Male 5:33 AM EST Gender Identity Not on file Sexual Orientation Not on file documented as of this encounter Functional Status * Calculated C-SSRS Risk Score (Lifetime/Recent) Answer Date of Assessment Author No Risk Indicated 12/26/2021 5:50 AM EST Maribel oRbert RN * [place] Suicide Severity Rating Scale (Screener/Recent Self-Report) Question Answer Date of Assessment Author 1. Wish to be (Past 1 Month) No 12/26/2021 5:50 AM EST Radha Yoon RN 2. Non-Specific Active Suicidal Thoughts (Past 1 Month) No 12/26/2021 5:50 AM Radha Christian RN 6. Suicidal Behavior (Lifetime) No 12/26/2021 5:50 AM EST Radha Yoon RN documented as of this encounter Plan of Treatment Not on file documented as of this encounter Visit Diagnoses Not on filedocumented in this encounter Care Teams Sandwich And Drink Cart Operator Relationship Specialty Start Date End Date Pcp, Unknown PCP - General 12/26/21 documented as of this encounter Additional Source Comments The information contained in this document represents components of the legal health record. It is not the complete legal health record.[facility]
[2025-06-28 16:45] VITALS: BP 153/98; PULSE 89; RESP 16; TEMP 36.6; O2SAT 95
[2025-06-28 17:43] LABS: Alanine Aminotransferase 68 U/L (0-40); Albumin Level 4.4 g/dL (3.5-5.0); Alkaline Phosphatase 109 U/L (39-117); Anion Gap 14 (12-20); Aspartate Amino Transferase 34 U/L (5-37); Blood Urea Nitrogen 8 mg/dL (9-16); Calcium 9.2 mg/dL (8.4-10.2); Carbon Dioxide 25 mmol/L (22-29); Chloride 106 mmol/L (96-108); Creatinine Clr Calc Pharmacy 144.1; Estimated Glomerular Filt Rate > 60; Potassium 4.2 mmol/L (3.3-5.1); Sodium 141 mmol/L (135-145); Total Protein 7.6 g/dL (6.5-8.0)
[2025-06-28 18:10] VITALS: BP 147/92; PULSE 83; RESP 17; TEMP 36.6; O2SAT 95
== END 2025-06-28 18:11 | disposition home or self-care (01) ==
PROVIDERS: Physician Assistant Medical; Emergency Provider Emergency Medicine; PCP Internal Medicine
DX: R42 Dizziness and giddiness (principal); E11.9 Type 2 diabetes mellitus without complications; Z79.4 Long term (current) use of insulin
CPT/HCPCS: 36415; 80053; 82010; 82803; 82947; 83735; 84484; 85025; 85610; 87637; 93005; 96360; 96361; 99284; 99285; J7120

== ENCOUNTER → 2025-06-28 14:45 | Outpatient (BNV) | payer MEDICAID, SELFPAY | PROVIDERS: Emergency Provider Emergency Medicine; PCP Internal Medicine; Visit Provider Internal Medicine Cardiovascular Disease | DX: R73.9 Hyperglycemia, unspecified (principal) | CPT/HCPCS: 93010 ==

== ENCOUNTER 2025-07-16 15:37 | Emergency (ER) | payer MEDICAID, SELFPAY ==
[2025-07-16 16:10] VITALS: BP 153/87; PULSE 95; RESP 20; TEMP 37.1; O2SAT 97; BMI 32.1
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
[2025-07-16 16:34] LABS: MANUAL DIFF FLAG NO
[2025-07-16 16:39] LABS: Hematocrit 45.3 % (42.0-52.0); Hemoglobin 15.8 g/dl (14.0-18.0); Imm Gran Abs Auto 0.01 X10*3/uL (0.00-0.03); Imm Gran Pct Auto 0.2 % (0.0-0.4); Lymphocytes Absolute Auto 1.7 X10*3/uL (1.2-4.9); Mean Corpuscular HGB Conc 34.9 g/dl (31.0-36.0); Mean Corpuscular Hemoglobin 28.0 pg (27.0-33.0); Mean Corpuscular Volume 80.3 fL (80.0-98.0); NRBC Abs Auto 0.000 X10*3/uL (0.0-0.012); NRBC Pct Auto 0.0 /100WBC (0.0-0.2); Platelet Count 175 X10*3/uL (160-400); Red Blood Count 5.64 X10*6/uL (4.60-5.80); White Blood Count 4.6 X10*3/uL (4.8-10.8)
[2025-07-16 16:51] LABS: Alanine Aminotransferase 59 U/L (0-40); Albumin Level 4.6 g/dL (3.5-5.0); Alkaline Phosphatase 126 U/L (39-117); Anion Gap 17 (12-20); Aspartate Amino Transferase 53 U/L (5-37); Blood Urea Nitrogen 15 mg/dL (9-16); Calcium 8.9 mg/dL (8.4-10.2); Carbon Dioxide 23 mmol/L (22-29); Chloride 102 mmol/L (96-108); Creatinine Clr Calc Pharmacy 138.2; Estimated Glomerular Filt Rate > 60; Potassium 4.0 mmol/L (3.3-5.1); Sodium 138 mmol/L (135-145); Total Protein 7.9 g/dL (6.5-8.0)
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
--- OUTSIDE RECORDS SUMMARY | 2025-07-16 17:31 | XMS_ITS | Encounter Summary ---
Author Organization [facility] Address [address] [place] [address] Phone Care Team Providers Care Program Coordinator For Residence Life Name Role Phone Pcp, Unknown Primary Care Provider Unavailabl e Encounter Details Date Type Department Care Team (Late st Contact Info) Description 12/26/2021 Procedure Pass [facility], Ct Scan - [address] [address] Social History Tobacco Use Types Packs/Day Years [...] Risk Indicated 12/26/2021 5:50 AM EST Maribel Robert RN * [place] Suicide Severity Rating Scale (Screener/Recent Self-Report) Question [...] on filedocumented in this encounter Care Teams Program Coordinator For Residence Life Relationship Specialty Start Date End Date Pcp, Unknown PCP - General 12/26/21 documented as of this encounter Additional Source Comments The information contained in this document represents components of the legal health record. It is not the complete legal health record.[facility]
--- OUTSIDE RECORDS SUMMARY | 2025-07-16 17:31 | XMS_ITS | Clinical Summary ---
Author Organization [employer] Address [address] [place] [address] Care Team Providers Care Salesperson New Cars Name Role Phone Unavailable Primary Care Provider Unavailabl e Allergies No known active allergies Medications metFORMIN (Glucophage) 500 MG tablet Take 500 mg by mouth with breakfast and with evening meal. Active Active Problems Problem Noted Date Diagnosed Date Newly diagnosed diabetes 06/28/2025 Assessment & Plan (06/28/2025 2:04 PM EDT): Glucose today [facility], A1c 12.3 urine + ketones Patient presented to [facility] [place] [place] [facility] called Elevated blood pressure reading 06/28/2025 Assessment & Plan (06/28/2025 2:06 PM EDT): I advised low Na diet, weight reduction, I will follow up after hospitalization Encounters Date Type Department Care Team Description 06/28/2025 3:00 PM EDT Office Visit [facility] [address] [place] [address] Marychuy Wynne MD Newly diagnosed diabetes ([facility]) (Primary Dx); Dizzy; Excessive thirst; Elevated blood pressure reading 06/28/2025 Orders Only GENERIC EXTERNAL DATA DEPARTMENT Provider, Generic External Data 06/28/2025 Travel from Last 3 Months Immunizations Immunization Administration Dates Next Due Moderna Covid-19 Vaccine 12+ 05/09/2022,04/25/20 21,03/28/2021 Tdap 12/26/2021 Social History Tobacco Use Types Packs/Day Years Used Date Smoking Tobacco: Never Assessed Sex and Gender Information Value Date Recorded Sex Assigned at Male 09/08/2022 10:40 AM EDT Legal Sex Male 10:40 AM EDT Gender Identity Male 09/08/2022 10:40 AM EDT Sexual Orientation Straight 09/08/2022 10 :40 AM EDT Last Filed Vital Signs Vital Sign Reading Time Taken Comments Blood Pressure 158/100 06/28/2025 1:44 PM EDT Pulse 99 06/28/2025 1:44 PM EDT Temperature 36.6 C (97.9 F) 06/28/2025 1:44 PM EDT Respiratory Rate 18 06/28/2025 1:44 PM EDT Oxygen Saturation 96% 06/28/2025 1:44 PM EDT Inhaled Oxygen Concentration - - Weight - - Height - - Body Mass Index - - Plan of Treatment Upcoming Encounters Date Type Department Care Team (Late st Contact Info) Description 07/18/2025 10:15 AM EDT Office Visit [facility] [address], [place] [phone] Marychuy Wynne MD [address] [place], [place] [phone] Health Maintenance Due Date Last Done Comments Depression Screening 1995 HIV Screening 1995 Lipid Panel 1995 SDOH Screening 1995 Disability Screening 1995 Diabetes: Foot Exam 2005 Eye Exam 2005 Alcohol/Substance Use Screening 2007 Tobacco Screening 2007 Family Planning (PISQ) 2010 HPV Vaccines (1 - Male 3-dos e series) 2010 Hepatitis C Screening 2013 Diabetes: Urine Protein Screening 2014 Hepatitis B Vaccines (1 of 3 - 19+ 3-dose series) 2014 Pneumococcal Vaccine: Pediatrics (0 to 5 Years) and At-Risk Patients (6 to 49) Years (1 of 2 - PCV) 2014 COVID-19 Vaccine (4 - 2024-2 6 season) 2025 05/09/2022, 04/25/2021, 03/28/2021 Influenza Vaccine (#1) 2025 Diabetes: Hemoglobin A1C 09/28/2025 06/28/2025 DTaP/Tdap/Td Vaccines (2 - T d or Tdap) 12/26/2031 12/26/2021 Zoster Vaccines (1 of 2) 2045 RSV Patients and Patients Aged 60 years or older (1 - 1-dose 75+ series) 2070 HIB Vaccines Aged Out No longer eligi ble based on patient's age to complete this topic Hepatitis A Vaccines Aged Out No long er eligible based on patient's age to complete this topic IPV Vaccines Aged Out No longer eligi ble based on patient's age to complete this topic Meningococcal B Vaccine Aged Out No l onger eligible based on patient's age to complete this topic Meningococcal Vaccine Aged Out No nahid melly eligible based on patient's age to complete this topic RSV under 20 months Aged Out No longe r eligible based on patient's age to complete this topic Rotavirus Vaccines Aged Out No longer eligible based on patient's age to complete this topic Procedures Procedure Name Priority Date/Time Associated Diagnosis Comments COMPREHENSIVE METABOLIC PANEL Routine 06/28/2025 5:15 PM EDT POCT GLYCATED HEMOGLOBIN, TOTAL Routine 06/28/2025 1:41 PM EDT Dizzy Excessive thirst POCT GLUCOSE Routine 06/28/2025 1:41 PM EDT Dizzy Excessive thirst POCT URINALYSIS DIPSTICK Routine 06/28/2025 1:37 PM EDT Dizzy Excessive thirst from Last 3 Months Results * (ABNORMAL) Comprehensive Metabolic Panel (06/28/2025 5:15 PM EDT) Sodium 141 135 - 145 mmol/L [facility] Potassium 4.2 3.3 - 5.1 mmol/L [facility] Chloride 106 96 - 108 mmol/L [facility] Carbon Dioxide 25 22 - 29 mmol/L [facility] Anion Gap 14 12 - 20 [facility] Urea Nitrogen (BUN) 8(L) 9 - 16 mg/dL [facility] Creatinine, Serum 0.88 0.5 - 1.4 mg/dL [facility] Creatinine Clr Calc Pharmacy 144.1 [facility] Comment:eGFR (calculated fro m the MDRD study equation) and eCrCl(calculated from the Cockcroft-Gault equation) are based ondifferent parameters and may not yield comparable results.If eCrCl result is absurd, please check patient'sheight/weight. Estimated Glomerular Filt Rate >60 [facility] Comment:Chronic Kidney Disea se: Estimated GFR < 60 mL/min/1.06l7Emjaag Kidney Disease: Estimated GFR < 15 mL/min/1.73m2 Glucose 307(H) 60 - 115 mg/dL [facility] Calcium 9.2 8.4 - 10.2 mg/dL [facility] Bilirubin, Total 0.6 0.0 - 1.0 mg/dL [facility] Aspartate Amino Transferase 34 5 - 37 U/L [facility] Alanine Aminotransferase 68(H) 0 - 40 U/L [facility] Total Protein 7.6 6.5 - 8.0 g/dL [facility] Albumin Level 4.4 3.5 - 5.0 g/dL [facility] Alkaline Phosphatase 109 39 - 117 U/L [facility] 06/28/2025 5:15 PM EDT 06/28/2025 5:17 PM EDT us Generic External Data Provider LAB BLOOD ORDERAB LES Final Result [facility] [address] [place] [phone] * (ABNORMAL) POCT HGB A1C (06/28/2025 1:41 PM EDT) Hemoglobin A1C 12.3(A) 4.0 - 5.7 % Blood 06/28/2025 1:41 PM EDT us Marychuy Paige MD POINT OF CARE TEST EN TER/EDIT ORDERABLES Final Result * (ABNORMAL) POCT Glucose (06/28/2025 1:41 PM EDT) Glucose Blood, POC 500(A) 60 - 200 mg/dL Comment:[facility] Blood Capillary blood specimen / Unknown [...] None Detected Urine 06/28/2025 1:37 PM EDT Marychuy Paige MD POINT OF CARE TEST EN TER/EDIT ORDERABLES Final Result from Last 3 Months Insurance [facility] C3
--- OUTSIDE RECORDS SUMMARY | 2025-07-16 17:32 | XMS_ITS | Encounter Summary ---
Author Organization [facility] Address [address] [place] [phone] Phone Care Team Providers Care Leadership Development Consultant Name Role Phone Pcp, Unknown Primary Care Provider Unavailabl e Encounter Details Date Type Department Care Team (Late st Contact Info) Description 12/26/2021 Procedure Pass [facility], Ct Scan - [address] [address] Social History Tobacco Use Types Packs/Day Years [...] 5:50 AM EST Maribel Robert RN * [place] Suicide Severity Rating Scale (Screener/Recent Self-Report) Question [...] on filedocumented in this encounter Care Teams Leadership Development Consultant Relationship Specialty Start Date End Date Pcp, Unknown PCP - General 12/26/21 documented as of this encounter Additional Source Comments The information contained in this document represents components of the legal health record. It is not the complete legal health record.[facility]
--- OUTSIDE RECORDS SUMMARY | 2025-07-16 17:32 | XMS_ITS | Clinical Summary ---
Author Organization [facility] Address [address] [place] [address] Phone Care Team Providers Care Preschool Teacher Aide Name Role Phone Pcp, Unknown Primary Care Provider Unavailabl e Allergies No known active allergies Immunizations Immunization Administration Dates Next Due Tdap 12/26/2021 Social History Tobacco Use Types Packs/Day Years Used Date Smoking Tobacco: Never Assessed Education Answer Date Recorded Are you interested in more education? Not on oliver e 03/07/2023 Are you concerned about learning? Not on file 03/07/2023 No 03/07/2023 No 03/07/2023 Digital Access Answer Date Recorded No 04/07/2023 No 04/07/2023 Reliable internet access at home? Not on file 04/07/2023 Device with a working camera? Not on file Sex and Gender Information Value Date Recorded Sex Assigned at Male 12/26/2021 5:45 AM EST Legal Sex Male 5:33 AM EST Gender Identity Not on file Sexual Orientation Not on file Last Filed Vital Signs Vital Sign Reading Time Taken Comments Blood Pressure 134/74 12/26/2021 9:30 AM EST Pulse 81 12/26/2021 9:30 AM EST Temperature 36.1 C (97 F) 12/26/2021 9:30 AM EST Respiratory Rate 16 12/26/2021 5:48 AM EST Oxygen Saturation 99% 12/26/2021 9:30 AM EST Inhaled Oxygen Concentration - - Weight - - Height - - Body Mass Index - - Plan of Treatment Not on file Medical Devices Not on file Insurance [employer] [facility] [employer] [facility] [place] [address] [place] [address] [employer] [address] [place] [address] [employer] PART[employer]CO [facility] [address] [place] [address] [place] [address] [place] [address] [employer] PART[employer]SHIP ACO [facility] ACO [facility] ACO [employer] [facility] [place] [address] Care Teams Preschool Teacher Aide Relationship Specialty Start Date End Date Pcp, Unknown PCP - General 12/26/21 Additional Source Comments The information contained in this document represents components of the legal health record. It is not the complete legal health record.[facility]
[2025-07-16 17:56] LABS: Appearance Urine Clear; Glucose Urine UA >=1000 mg/dL (Negative); PH 7.0 (5.0-9.0); Specific Gravity - Urine >= 1.030 (1.005-1.025); UMIC TRIGGER UACC YES
[2025-07-16 17:58] LABS: VBG HCO3 22 mmol/L (22-26); VBG O2 % Saturation 96.0 %
[2025-07-16 18:00] LABS: Venous Blood Gas Refer to POC result
[2025-07-16 18:26] LABS: Glucose, Whole Blood 214 mg/dL (60-115)
[2025-07-16 18:36] VITALS: BP 137/87; PULSE 77; RESP 16; O2SAT 97
[2025-07-16 19:00] VITALS: BP 137/87; PULSE 77; RESP 16; TEMP -17.7; TEMP 0; O2SAT 97
[2025-07-17 04:51] LABS: CT PCR Urine NOT DETECTED (Not Detect.); NG PCR Urine NOT DETECTED (Not Detect.)
== END 2025-07-16 19:01 | disposition home or self-care (01) ==
PROVIDERS: Physician Assistant; Emergency Provider Emergency Medicine Emergency Medical Services; PCP Internal Medicine
DX: N48.1 Balanitis (principal); R11.0 Nausea; Z79.899 Other long term (current) drug therapy
CPT/HCPCS: 36415; 80053; 81001; 82010; 82803; 82947; 85025; 87491; 87591; 96361; 96374; 99284

== ENCOUNTER 2025-07-18 11:08 | Outpatient (REF) | payer MEDICAID, SELFPAY ==
--- OUTSIDE RECORDS SUMMARY | 2025-07-18 13:32 | XMS_ITS | Encounter Summary ---
Author Organization [facility] Address [address] [place] [address] Phone Care Team Providers Care Quality Assurance Specialist Name Role Phone Pcp, Unknown Primary Care Provider Unavailabl e Encounter Details Date Type Department Care Team (Late st Contact Info) Description 12/26/2021 Procedure Pass [facility], Ct Scan - [address] [address] Social History Tobacco Use Types Packs/Day Years [...] 5:50 AM EST Maribel Robert RN * [place] Suicide Severity Rating Scale (Screener/Recent Self-Report) Question [...] on filedocumented in this encounter Care Teams Quality Assurance Specialist Relationship Specialty Start Date End Date Pcp, Unknown PCP - General 12/26/21 documented as of this encounter Additional Source Comments The information contained in this document represents components of the legal health record. It is not the complete legal health record.[facility]
--- OUTSIDE RECORDS SUMMARY | 2025-07-18 13:32 | XMS_ITS | Clinical Summary ---
Author Organization [facility] Address [address] [place] [address] Phone Care Team Providers Care Side Panel Hanger Name Role Phone Pcp, Unknown Primary Care [...] file Medical Devices Not on file Insurance [employer] [facility] [employer] [facility] [place] [address] [place] [address] [employer] [place] [address] [place] [address] [employer] PART[employer] [facility]CO [facility] [employer] [address] [place] [address] [place] [address] [place] [address] [employer] PARTNER[employer] ACO [facility] ACO [facility] [employer]CO [employer] [facility] [address] Care Teams Side Panel Hanger Relationship Specialty Start Date End Date Pcp, Unknown PCP - General 12/26/21 Additional Source Comments The information contained in this document represents components of the legal health record. It is not the complete legal health record.[facility]
--- OUTSIDE RECORDS SUMMARY | 2025-07-18 13:32 | XMS_ITS | Encounter Summary ---
Author Organization [facility] Address [address] [place] [id number] Phone Care Team Providers Care Percussion Tuner Name Role Phone Pcp, Unknown Primary Care Provider Unavailabl e Encounter Details Date Type Department Care Team (Late st Contact Info) Description 12/26/2021 Procedure Pass [facility], Ct Scan - [address] [id number] Social History Tobacco Use Types Packs/Day Years [...] 5:50 AM EST Maribel Robert RN * [place] Suicide Severity Rating Scale (Screener/Recent Self-Report) Question [...] on filedocumented in this encounter Care Teams Percussion Tuner Relationship Specialty Start Date End Date Pcp, Unknown PCP - General 12/26/21 documented as of this encounter Additional Source Comments The information contained in this document represents components of the legal health record. It is not the complete legal health record.[facility]
[2025-07-18 13:44] LABS: Cholesterol 228 mg/dL (<200); HDL Cholesterol 29 mg/dL (>40); Triglycerides 128 mg/dL (<150)
[2025-07-18 14:00] LABS: Microalbum/Creatinine Ratio Ur 54.0 ug/mg cr (<30)
[2025-07-19 21:24] LABS: Immunoglobulin A 281 mg/dL (47-310)
== END 2025-07-18 11:09 | disposition home or self-care (01) ==
LOC: HO.HHCL 11:08
PROVIDERS: PCP Internal Medicine; Visit Provider Internal Medicine
DX: E11.9 Type 2 diabetes mellitus without complications (principal)
CPT/HCPCS: 36415; 80061; 82043; 82570; 82784; 84443; 86364